=== PATIENT | male | born 1945 | race Caucasian/White ===

== ENCOUNTER 2021-05-12 17:30 | Observation (INO) | payer MEDICARE, OTHER, SELFPAY ==
[2021-05-12] VITALS (10 sets, daily range): BP systolic 132–165; BP diastolic 67–88; PULSE 60–71; RESP 16–31; TEMP 36.2–36.9; O2SAT 97–99; BMI 24.3; BMI 23.6
--- NOTE | 2021-05-12 17:30 | DI.CT.S_ITS ---
PROCEDURE: CT STROKE INDICATIONS: Slurred speech TECHNIQUE: Noncontrast 4.5 mm thick angled axial sections acquired from the foramen magnum to the vertex, with coronal reformats. For radiation dose reduction, the following was used: automated exposure control, adjustment of mA and/or kV according to patient size. COMPARISON: None. FINDINGS: Image quality: Excellent. CSF spaces: Basal cisterns are patent. No extra-axial fluid collections. The ventricles are symmetric in size and shape. Brain: No intracranial bleeds or masses. There is cerebral volume loss for age, with resultant ventricular and sulcal prominence. There are periventricular and deep white matter chronic small vessel ischemic changes. There is intracranial internal carotid artery atherosclerosis. Skull and face: Calvarium and visualized facial bones appear intact, without suspicious lesions. Sinuses: Scattered ethmoid and bilateral maxillary sinus mucosal thickening.Remainder of the paranasal sinuses appear clear. Mastoid air cells are well-aerated. IMPRESSION: 1. CT head without acute intracranial abnormalities or acute calvarial fractures. 2. Age-related senescent changes and sequela of chronic small vessel ischemic disease. Findings were discussed with Dr. Bocanegra at 1800 hrs. This study fulfills neurological imaging criteria for inclusion or exclusion of acute stroke therapies based on available published neurological guidelines. Dictated by: Augustine Mccauley M.D. on 05/12/2021 at 17:59 Approved by: Augustine Mccauley M.D. on 05/12/2021 at 18:02
--- NOTE | 2021-05-12 17:30 | DI.CT.S_ITS ---
PROCEDURE: CT ANGIO HEAD AND NECK INDICATIONS: Slurred speech TECHNIQUE: After the administration of intravenous contrast, 1 mm thick sections acquired from the aortic arch through the [place]. Post-contrast 4.5 mm thick sections then re-acquired from the foramen magnum to the vertex. 3-dimensional xmagoxn-gvvqlmisz-muxjknyavm (MIP) and/or volume rendering reformats were acquired of the central intracranial vasculature and neck separately. COMPARISON: None. FINDINGS: Image quality: Excellent. BRAIN: CSF spaces: Ventricles are normal in size and shape. Basal cisterns are patent. No extra-axial fluid collections. Brain: No midline shift. No intracranial masses. No abnormal enhancement. [place]-white matter interface appears intact. Skull and face: Calvarium and facial bones appear intact, without suspicious lesions. Orbits appear normal. Sinuses: Scattered ethmoid and bilateral maxillary sinus mucosal thickening. HEAD CT ANGIOGRAPHY: Anterior circulation: Moderate atherosclerotic calcifications of the intracranial segments of the bilateral internal carotid arteries. Intracranial internal carotid arteries are patent with moderate stenosis. There is flow/opacification within the paired anterior cerebral arteries. There is opacification within the middle cerebral arteries. The anterior communicating artery is seen. No aneurysms are seen. No occlusion. Posterior circulation: Atherosclerotic calcifications are noted in the vertebral arteries more pronounced on the left. There is associated moderate stenosis on the left. Visualized portions of the vertebral arteries are patent and join to form a normal appearing basilar artery. The distal most segment of the right vertebral artery appears diminutive in size. No definite occlusion seen at this level. There is opacification of the posterior cerebral arteries. No aneurysms are seen. NECK CT ANGIOGRAPHY: Carotid system: The great vessels demonstrate a conventional anatomy as they arise from the aortic arch. Scattered atherosclerotic calcifications of the aortic arch. The origins of the common carotid arteries appear patent. The common carotid arteries appear patent throughout their visualized courses without high grade stenosis. The bifurcation regions are both patent without high grade stenosis. The internal carotid arteries demonstrate normal calibers and courses. Posterior circulation: The origins of the vertebral arteries both appear patent without hemodynamically significant stenosis. The more superior extracranial portions of both vertebral arteries also demonstrate normal courses and calibers. They join to form a normal appearing basilar artery. Soft tissues: Visualized neck soft tissues demonstrate no suspicious abnormalities. no apical pneumothorax. Patchy peripheral left upper lobe density is incompletely imaged and likely represent atelectasis. Pulmonary emphysema. Bones: No suspicious bony lesions. Visualized cervical spine appears normally aligned. No acute compression fractures of the vertebral bodies. IMPRESSION: 1. 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 No evidence for high-grade stenosis or occlusion. No aneurysm seen. 2. 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 There is diminutive size of the right vertebral artery just proximal to joining to form the basilar artery. No definite occlusion seen. This is likely congenital. No significant atherosclerotic vascular disease at this segment. 3. Atherosclerotic vascular disease of the extracranial/cervical arterial vasculature without high-grade stenosis. 4. Scattered ethmoid and bilateral maxillary sinus disease. 5. Bilateral upper lobe pulmonary emphysematous changes with suspected patchy atelectasis of the left upper lobe. Any quantitative measurements of stenosis were performed using NASCET criteria. Dictated by: Augustine Mccauley M.D. on 05/12/2021 at 18:14 Approved by: Augustine Mccauley M.D. on 05/12/2021 at 18:27
[2021-05-12 17:51] LABS: Add Manual Diff / Slide Review NO; Basophils Absolute Auto 0 /uL (0-100); Basophils Percent Auto 0.6 % (0-2); Eosinophils Absolute Auto 0 /uL (0-450); Eosinophils Percent Auto 1.3 % (2-4); Hematocrit 36.4 % (41-53); Hemoglobin 12.7 g/dL (13.5-17.5); Lymphocytes Absolute Auto 1000 /uL (1100-4500); Lymphocytes Percent Auto 24.9 % (25-40); Mean Corpuscular HGB Conc 34.8 % (30-36); Mean Corpuscular Hemoglobin 32.7 PG (26-34); Mean Corpuscular Volume 93.9 fL (80-100); Monocytes Absolute Auto 600 /uL (0-900); Neutrophils Absolute Auto 2300 /uL (1500-7000); Neutrophils Percent Auto 58.2 % (50-75); Platelet Count 188 X10^3/uL (150-400); Red Blood Cell Count 3.88 X10^6/uL (4.5-5.9); Red Cell Distribution Width 13.4 % (11.6-14.8)
--- NOTE | 2021-05-12 17:52 | ED_ITS ---
HPI - Neuro Symptoms/Deficit <Rory Bocanegra MD - Last Filed: 05/19/21 22:35> General Chief Complaint: Neuro Symptoms/Deficit Stated Complaint: Stroke Time Seen by Provider: 05/12/21 17:31 History of Present Illness HPI Narrative: Code stroke activated. Patient onset symptoms at 4:40 p.m. tonight. Patient had slurred speech and generalized weakness. No headache. No facial droop. Patient is symptomatic with EMS arrival but started to improve and then returned again while in the ambulance. However on arrival symptoms resolved. Currently asymptomatic. Blood sugar by EMS 100. Patient denies any medical history. He does state that he stop taking cholesterol medication years ago because he moved and did not regain another provider. Does have family history of strokes. No recent illness. No headache no chest pain. Patient has no active COVID symptoms. He does test positive for COVID but no symptoms. Has been greater than 2 weeks since being COVID positive Related Data Previous Rx's Medication Instructions Recorded aspirin 81 mg tablet,delayed 81 mg PO Q OTHER DAY #1 tab 05/13/21 release atorvastatin 20 mg tablet (Lipitor) 40 mg PO BEDTIME #30 tab 05/13/21 Allergies Allergy/AdvReac Type Severity Reaction Status Date / Time No Known Drug Allergies Allergy Verified 05/12/21 19:51 Review of Systems <Rory Bocanegra MD - Last Filed: 05/19/21 22:35> Review of Systems Narrative: GENERAL: Denies chills, fatigue, malaise, fever, sweats. HEENT: Denies sinus pain, ear pain, sore throat RESPIRATORY: Denies dyspnea, cough CARDIOVASCULAR: Denies chest pain, palpitations GASTROINTESTINAL: Denies nausea, vomiting, abdominal pain : Denies dysuria, frequency, hematuria MUSCULOSKELETAL: denies muscle or bony pain SKIN: Denies rash, skin lesions NEUROLOGIC: Positive for weakness, negative for numbness, positive for slurred speech, negative facial droop ROS Unobtainable: All systems reviewed & are unremarkable except as noted in HPI and below Patient History <Rory Bocanegra MD - Last Filed: 05/19/21 22:35> Social History household members: family Smoking Status: Never smoker alcohol intake: former Exam <Rory Bocanegra MD - Last Filed: 05/19/21 22:35> Narrative Exam Narrative: GENERAL: in no distress, not toxic not dyspneic HEAD: Normocephalic. EYES: Pupils equal round No scleral icterus. ENT: Mucous membranes moist. NECK: Trachea midline. CARDIOVASCULAR: Regular rate and rhythm without murmurs RESPIRATORY: Clear to auscultation. Breath sounds equal bilaterally. No wheezes, rales, or rhonchi. GASTROINTESTINAL: Abdomen soft, non-tender EXTREMITIES: No gross deformities. BACK: No flank tenderness. NEURO: AOx4. Clear speech no facial droop. Light touch intact to bilateral face hands. 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 Strong bilateral patellar reflexes. No pronator drift. SKIN: Warm and dry PSYCH: Not anxious, is cooperative Initial Vital Signs Initial Vital Signs: Vital Signs Pulse Rate 71 05/12/21 17:42 Pulse Oximetry 97 05/12/21 17:42 <Nilsa Boateng MD - Last Filed: 05/13/21 01:49> Initial Vital Signs Initial Vital Signs: Vital Signs Pulse Rate 71 05/12/21 17:42 Pulse Oximetry 97 05/12/21 17:42 Scores <Rory Bocanegra MD - Last Filed: 05/19/21 22:35> NIH Stroke Scale Level of Conciousness: Alert, keenly responsive Ask month/age: Answers both questions correctly. Open/close eyes, close hand: Performs both tasks correctly Best gaze horizontal: Normal Visual hernandez: No visual loss Facial palsy: Normal symetrical movement Left arm drift: No drift for full 10 sec Right arm drift: No drift for full 10 sec Left leg drift: No drift for full 5 sec Right leg drift: No drift for full 5 sec Limb ataxia: Absent Sensory on face/arms/legs: Normal, no sensory loss Best language: No aphasia, normal Dysarthria: Normal Extinction or inattention: No abnormality Total NIH Stroke scale score: 0 <Nilsa Boateng MD - Last Filed: 05/13/21 01:49> NIH Stroke Scale Total NIH Stroke scale score: 0 Course <Rory Bocanegra MD - Last Filed: 05/19/21 22:35> Course Course Narrative: No new issues during course of stay Decision to Admit Date: 05/12/21 Decision to Admit time: 18:23 Orders Ordered: Discontinued Medications Aspirin (Aspirin 81 Mg Chew Tab) 324 mg PO NOW ONE Stop: 05/12/21 18:45 Last Admin: 05/12/21 18:54 Dose: 324 mg Documented by: SANDY Aspirin (Aspirin Ec 81 Mg Tablet) 81 mg PO DAILY [facility] Last Admin: 05/13/21 10:40 Dose: 81 mg Documented by: SOCRATES Atorvastatin Calcium (Atorvastatin 20 Mg Tablet) 40 mg PO BEDTIME [facility] Last Admin: 05/12/21 20:09 Dose: 40 mg Documented by: JASPREET Enoxaparin Sodium (Enoxaparin 40 Mg/0.4 Ml Syringe) 40 mg SUBCUT DAILY [facility] Last Admin: 05/13/21 10:40 Dose: 40 mg Documented by: SOCRATES Sodium Chloride (Normal Saline 0.9%) 1,000 mls @ 1,000 mls/hr IV BOLUS ONE Stop: 05/12/21 19:43 Last Infusion: 05/12/21 20:26 Dose: 0 mls/hr Documented by: Admin: 05/12/21 18:54 Dose: 1,000 mls/hr Documented by: SANDY Ondansetron HCl (Ondansetron 4 Mg/2 Ml Inj) 4 mg IV Q8HR PRN PRN Reason: Nausea And Vomiting Sodium Chloride (Sodium Chloride 0.9% Flush) 10 ml IV PRN PRN PRN Reason: Flush Sodium Chloride (Sodium Chloride 0.9% Flush) 10 ml IV BID [facility] Last Admin: 05/13/21 10:40 Dose: 10 ml Documented by: Admin: 05/12/21 21:38 Dose: 10 ml Documented by: JASPREET Reevaluation(s) Reevaluation #1: Patient understands and agrees for admit. No new symptoms. Time: 18:24 Consultations Consultation #1: Radiologist called noncontrast head CT negative Time: 18:02 Consultation #2: Spoke with hospitalist, dr fajardo, will admit Time: 18:44 Vital Signs Vital signs: Vital Signs - 8 hr 05/12/21 17:50 05/12/21 18:00 05/12/21 18:30 Temperature 98.4 F Pulse Rate 67 67 71 Respiratory Rate 18 31 H 25 H Blood Pressure 149/72 H 149/72 H Pulse Oximetry 97 97 97 05/12/21 18:31 Temperature Pulse Rate 69 Respiratory Rate 25 H Blood Pressure 155/88 H Pulse Oximetry 97 <Nilsa Boateng MD - Last Filed: 05/13/21 01:49> Orders Ordered: Discontinued Medications Aspirin (Aspirin 81 Mg Chew Tab) 324 mg PO NOW ONE Stop: 05/12/21 18:45 Last Admin: 05/12/21 18:54 Dose: 324 mg Documented by: SANDY Aspirin (Aspirin Ec 81 Mg Tablet) 81 mg PO DAILY [facility] Last Admin: 05/13/21 10:40 Dose: 81 mg Documented by: SOCRATES Atorvastatin Calcium (Atorvastatin 20 Mg Tablet) 40 mg PO BEDTIME [facility] Last Admin: 05/12/21 20:09 Dose: 40 mg Documented by: JASPREET Enoxaparin Sodium (Enoxaparin 40 Mg/0.4 Ml Syringe) 40 mg SUBCUT DAILY [facility] Last Admin: 05/13/21 10:40 Dose: 40 mg Documented by: SOCRATES Sodium Chloride (Normal Saline 0.9%) 1,000 mls @ 1,000 mls/hr IV BOLUS ONE Stop: 05/12/21 19:43 Last Infusion: 05/12/21 20:26 Dose: 0 mls/hr Documented by: Admin: 05/12/21 18:54 Dose: 1,000 mls/hr Documented by: SANDY Ondansetron HCl (Ondansetron 4 Mg/2 Ml Inj) 4 mg IV Q8HR PRN PRN Reason: Nausea And Vomiting Sodium Chloride (Sodium Chloride 0.9% Flush) 10 ml IV PRN PRN PRN Reason: Flush Sodium Chloride (Sodium Chloride 0.9% Flush) 10 ml IV BID [facility] Last Admin: 05/13/21 10:40 Dose: 10 ml Documented by: Admin: 05/12/21 21:38 Dose: 10 ml Documented by: JASPREET Vital Signs Vital signs: Vital Signs - 8 hr 05/12/21 17:50 05/12/21 18:00 05/12/21 18:30 Temperature 98.4 F Pulse Rate 67 67 71 Respiratory Rate 18 31 H 25 H Blood Pressure 149/72 H 149/72 H Pulse Oximetry 97 97 97 05/12/21 18:31 Temperature Pulse Rate 69 Respiratory Rate 25 H Blood Pressure 155/88 H Pulse Oximetry 97 MDM - Neuro Symptoms/Deficit <Rory Bocanegra MD - Last Filed: 05/19/21 22:35> Differential Diagnosis Differential diagnosis: Likely subarachnoid hemorrhage, cerebrovascular accident and transient cerebral ischemia Lab Data Result diagrams: 05/13/21 06:00 05/13/21 06:00 Labs: Lab Results 05/12/21 05/12/21 05/12/21 Range/Units 17:39 17:39 17:39 WBC 4.0 L (4.5-11.0) X10^3/uL RBC 3.88 L (4.5-5.9) X10^6/uL Hgb 12.7 L (13.5-17.5) g/dL Hct 36.4 L (41-53) % MCV 93.9 (80-100) fL MCH 32.7 (26-34) PG MCHC 34.8 (30-36) % RDW 13.4 (11.6-14.8) % Plt Count 188 (150-400) X10^3/uL Neut % (Auto) 58.2 (50-75) % Lymph % (Auto) 24.9 L (25-40) % Spink % (Auto) 15.0 H (3-14) % Eos % (Auto) 1.3 L (2-4) % Baso % (Auto) 0.6 (0-2) % Neut # (Auto) 2300 (8865-5513) /uL Lymph # (Auto) 1000 L (5719-5140) /uL Spink # (Auto) 600 (0-900) /uL Eos # (Auto) 0 (0-450) /uL Baso # (Auto) 0 (0-100) /uL PT 12.5 (10.1-12.7) SECONDS INR 1.1 (0.9-1.3) APTT 30 (26.4-36.2) SECONDS Sodium 132 L (137-145) mmol/L Potassium 3.7 (3.4-5.1) mmol/L Chloride 101 (98-107) mmol/L Carbon Dioxide 25 (22-32) mmol/L BUN 16 (9-20) mg/dL Creatinine 0.89 (0.66-1.25) mg/dL Estimated GFR > 60.0 (>60) mL/min BUN/Creatinine Ratio 18.0 (6-22) Glucose 123 H (80-110) mg/dL Calcium 8.1 L (8.4-10.2) mg/dL Total Bilirubin 0.6 (0.2-1.3) mg/dL AST 25 (17-59) IU/L ALT 20 (<50) IU/L Alkaline Phosphatase 66 (38-126) U/L Total Creatine Kinase 34 L (55-170) U/L CK-MB (CK-2) TNP CK-MB (CK-2) Rel Index TNP Troponin I < 0.012 (0.01-0.034) ng/mL Total Protein 6.5 (6.3-8.2) g/dL Albumin 3.6 (3.5-5.0) g/dL Globulin 2.9 (1.7-4.1) g/dL Albumin/Globulin Ratio 1.2 (1.0-2.8) SARS-CoV-2 (PCR) (Negative) 05/12/21 Range/Units 17:44 WBC (4.5-11.0) X10^3/uL RBC (4.5-5.9) X10^6/uL Hgb (13.5-17.5) g/dL Hct (41-53) % MCV (80-100) fL MCH (26-34) PG MCHC (30-36) % RDW (11.6-14.8) % Plt Count (150-400) X10^3/uL Neut % (Auto) (50-75) % Lymph % (Auto) (25-40) % Spink % (Auto) (3-14) % Eos % (Auto) (2-4) % Baso % (Auto) (0-2) % Neut # (Auto) (6214-3992) /uL Lymph # (Auto) (1346-5019) /uL Spink # (Auto) (0-900) /uL Eos # (Auto) (0-450) /uL Baso # (Auto) (0-100) /uL PT (10.1-12.7) SECONDS INR (0.9-1.3) APTT (26.4-36.2) SECONDS Sodium (137-145) mmol/L Potassium (3.4-5.1) mmol/L Chloride (98-107) mmol/L Carbon Dioxide (22-32) mmol/L BUN (9-20) mg/dL Creatinine (0.66-1.25) mg/dL Estimated GFR (>60) mL/min BUN/Creatinine Ratio (6-22) Glucose (80-110) mg/dL Calcium (8.4-10.2) mg/dL Total Bilirubin (0.2-1.3) mg/dL AST (17-59) IU/L ALT (<50) IU/L Alkaline Phosphatase (38-126) U/L Total Creatine Kinase (55-170) U/L CK-MB (CK-2) CK-MB (CK-2) Rel Index Troponin I (0.01-0.034) ng/mL Total Protein (6.3-8.2) g/dL Albumin (3.5-5.0) g/dL Globulin (1.7-4.1) g/dL Albumin/Globulin Ratio (1.0-2.8) SARS-CoV-2 (PCR) Positive H (Negative) Point of Care Testing Glucose POC [address] scan - head: Radiologist's Impression: [place] [address] CT Scan Report Signed Patient: Russ Humphrey MR#: [id number] : 1945 Acct:[id number] Age/Sex: 76 / M Date of Service: 05/12/21 Loc: ED Accession Number: [id number] ?? Procedure: CT Stroke Ordering Provider: Rory Bocanegra MD PROCEDURE:? CT STROKE ? INDICATIONS:? Slurred speech ? TECHNIQUE:? Noncontrast 4.5 mm thick angled axial sections acquired from the foramen magnum to the vertex, with coronal reformats.? For radiation dose reduction, the following was used:? automated exposure control, adjustment of mA and/or kV according to patient size.? ? COMPARISON:? None. ? FINDINGS:? Image quality:? Excellent.? ? CSF spaces:? Basal cisterns are patent.? No extra-axial fluid collections.? The ventricles are symmetric in size and shape.? ? Brain:? No intracranial bleeds or masses.? There is cerebral volume loss for age, with resultant ventricular and sulcal prominence.? There are periventricular and deep white matter chronic small vessel ischemic changes.? There is intracranial internal carotid artery atherosclerosis.? ? Skull and face:? Calvarium and visualized facial bones appear intact, without suspicious lesions.? ? Sinuses:? Scattered ethmoid and bilateral maxillary sinus mucosal thickenin g.Remainder of the paranasal sinuses appear clear. Mastoid air cells are well-aerated. ? ? IMPRESSION:? 1. CT head without acute intracranial abnormalities or acute calvarial fractures. ? 2. Age-related senescent changes and sequela of chronic small vessel ischemic disease. ? Findings were discussed with Dr. Bocanegra at 1800 hrs. ? This study fulfills neurological imaging criteria for inclusion or exclusion of acute stroke therapies based on available published neurological guidelines.? ? ? Dictated by: Augustine Mccauley M.D. on 05/12/2021 at 17:59 ? ? Approved by: Augustine Mccauley M.D. on 05/12/2021 at 18:02 ? CTA - brain/neck: Radiologist's Impression: [address] [address] [address] Scan Report Signed Patient: Russ Humphrey MR#: [id number] : 1945 Acct:[id number] Age/Sex: 76 / M Date of Service: 05/12/21 Loc: ED Accession Number: [id number] ?? Procedure: CT angio head and neck Ordering Provider: Rory Bocanegra MD PROCEDURE:? CT ANGIO HEAD AND NECK ? INDICATIONS:? Slurred speech ? TECHNIQUE:? ? After the administration of intravenous contrast, 1 mm thick sections acquired from the aortic arch through the [place] of [place].? Post-contrast 4.5 mm thick sections then re-acquired from the foramen magnum to the vertex.? 3-dimensional lrrvtak-vcmomvsnh-pmfaxquxyd (MIP) and/or volume rendering reformats were acquired of the central intracranial vasculature and neck separately. ? COMPARISON:? None. ? FINDINGS: ? Image quality:? Excellent.? ? BRAIN:? CSF spaces:? Ventricles are normal in size and shape.? Basal cisterns are patent.? No extra-axial fluid collections.? ? ? Brain:? No midline shift.? No intracranial? masses.? No abnormal enhancement.? [place]-white matter interface appears intact.? ? Skull and face:? Calvarium and facial bones appear intact, without suspicious lesions.? Orbits appear normal.? ? ? Sinuses:? Scattered ethmoid and bilateral maxillary sinus mucosal thickening.? ? HEAD CT ANGIOGRAPHY:? Anterior circulation:? Moderate atherosclerotic calcifications of the intracranial segments of the bilateral internal carotid arteries.? Intracranial internal carotid arteries are patent with moderate stenosis.? There is flow/opacification within the paired anterior cerebral arteries.? There is opacification within the middle cerebral arteries.? The anterior communicating artery is seen.? No aneurysms are seen. No occlusion. ? ? Posterior circulation:? Atherosclerotic calcifications are noted in the vertebral arteries more pronounced on the left.? There is associated moderate stenosis on the left. ?Visualized portions of the vertebral arteries are patent and join to form a normal appearing basilar artery.? The distal most segment of the right vertebral artery appears diminutive in size.? No definite occlusion seen at this level.? There is opacification of the posterior cerebral arteries.? No aneurysms are seen.? ? NECK CT ANGIOGRAPHY:? Carotid system:? The great vessels demonstrate a conventional anatomy as they arise from the aortic arch.? Scattered atherosclerotic calcifications of the aortic arch.? The origins of the common carotid arteries appear patent. The common carotid arteries appear patent throughout their visualized courses without high grade stenosis.? ? The bifurcation regions are both patent without high grade stenosis.? ? The internal carotid arteries demonstrate normal calibers and courses.? ? Posterior circulation:? ? The origins of the vertebral arteries both appear patent without hemodynamically significant stenosis.? The more superior extracranial portions of both vertebral arteries also demonstrate normal courses and calibers.? They join to form a normal appearing basilar artery. ? ? ? Soft tissues:? Visualized neck soft tissues demonstrate no suspicious abnormalities.? no apical pneumothorax.? Patchy peripheral left upper lobe density is incompletely imaged and likely represent atelectasis.? Pulmonary emphysema.? ? Bones:? No suspicious bony lesions.? Visualized cervical spine appears normally aligned.? No acute compression fractures of the vertebral bodies.? ? ? IMPRESSION:? ? 1. 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 No evidence for high-grade stenosis or occlusion.? No aneurysm seen. ? 2. 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 There is diminutive size of the right vertebral artery just proximal to joining to form the basilar artery.? No definite occlusion seen.? This is likely congenital.? No significant atherosclerotic vascular disease at this segment.? ? 3. Atherosclerotic vascular disease of the extracranial/cervical arterial vasculature without high-grade stenosis. ? 4. Scattered ethmoid and bilateral maxillary sinus disease. ? 5. Bilateral upper lobe pulmonary emphysematous changes with suspected patchy atelectasis of the left upper lobe.? ? Any quantitative measurements of stenosis were performed using NASCET criteria.? ? ? Dictated by: Augustine Mccauley M.D. on 05/12/2021 at 18:14 ? ? Approved by: Augustine Mccauley M.D. on 05/12/2021 at 18:27 ? ECG Data Interpretation: Normal sinus rhythm rate [address] elevation or depression MDM Narrative Medical decision making narrative: No tPA at this time. Symptoms have resolved. No consult with Neurology indicated this time. Patient is asymptomatic. TIA. Symptoms resolved. Appropriate for admission for balance of workup for TIA/stroke. No endovascular intervention at this time. No high-grade stenosis of large vessels. <Nilsa Boateng MD - Last Filed: 05/13/21 01:49> Lab Data Labs: Lab Results 05/12/21 05/12/21 05/12/21 Range/Units 17:39 17:39 17:39 WBC 4.0 L (4.5-11.0) X10^3/uL RBC 3.88 L (4.5-5.9) X10^6/uL Hgb 12.7 L (13.5-17.5) g/dL Hct 36.4 L (41-53) % MCV 93.9 (80-100) fL MCH 32.7 (26-34) PG MCHC 34.8 (30-36) % RDW 13.4 (11.6-14.8) % Plt Count 188 (150-400) X10^3/uL Neut % (Auto) 58.2 (50-75) % Lymph % (Auto) 24.9 L (25-40) % Spink % (Auto) 15.0 H (3-14) % Eos % (Auto) 1.3 L (2-4) % Baso % (Auto) 0.6 (0-2) % Neut # (Auto) 2300 (2929-6855) /uL Lymph # (Auto) 1000 L (2583-6480) /uL Spink # (Auto) 600 (0-900) /uL Eos # (Auto) 0 (0-450) /uL Baso # (Auto) 0 (0-100) /uL PT 12.5 (10.1-12.7) SECONDS INR 1.1 (0.9-1.3) APTT 30 (26.4-36.2) SECONDS Sodium 132 L (137-145) mmol/L Potassium 3.7 (3.4-5.1) mmol/L Chloride 101 (98-107) mmol/L Carbon Dioxide 25 (22-32) mmol/L BUN 16 (9-20) mg/dL Creatinine 0.89 (0.66-1.25) mg/dL Estimated GFR > 60.0 (>60) mL/min BUN/Creatinine Ratio 18.0 (6-22) Glucose 123 H (80-110) mg/dL Calcium 8.1 L (8.4-10.2) mg/dL Total Bilirubin 0.6 (0.2-1.3) mg/dL AST 25 (17-59) IU/L ALT 20 (<50) IU/L Alkaline Phosphatase 66 (38-126) U/L Total Creatine Kinase 34 L (55-170) U/L CK-MB (CK-2) TNP CK-MB (CK-2) Rel Index TNP Troponin I < 0.012 (0.01-0.034) ng/mL Total Protein 6.5 (6.3-8.2) g/dL Albumin 3.6 (3.5-5.0) g/dL Globulin 2.9 (1.7-4.1) g/dL Albumin/Globulin Ratio 1.2 (1.0-2.8) SARS-CoV-2 (PCR) (Negative) 05/12/21 Range/Units 17:44 WBC (4.5-11.0) X10^3/uL RBC (4.5-5.9) X10^6/uL Hgb (13.5-17.5) g/dL Hct (41-53) % MCV (80-100) fL MCH (26-34) PG MCHC (30-36) % RDW (11.6-14.8) % Plt Count (150-400) X10^3/uL Neut % (Auto) (50-75) % Lymph % (Auto) (25-40) % Spink % (Auto) (3-14) % Eos % (Auto) (2-4) % Baso % (Auto) (0-2) % Neut # (Auto) (6997-3776) /uL Lymph # (Auto) (7372-7071) /uL Spink # (Auto) (0-900) /uL Eos # (Auto) (0-450) /uL Baso # (Auto) (0-100) /uL PT (10.1-12.7) SECONDS INR (0.9-1.3) APTT (26.4-36.2) SECONDS Sodium (137-145) mmol/L Potassium (3.4-5.1) mmol/L Chloride (98-107) mmol/L Carbon Dioxide (22-32) mmol/L BUN (9-20) mg/dL Creatinine (0.66-1.25) mg/dL Estimated GFR (>60) mL/min BUN/Creatinine Ratio (6-22) Glucose (80-110) mg/dL Calcium (8.4-10.2) mg/dL Total Bilirubin (0.2-1.3) mg/dL AST (17-59) IU/L ALT (<50) IU/L Alkaline Phosphatase (38-126) U/L Total Creatine Kinase (55-170) U/L CK-MB (CK-2) CK-MB (CK-2) Rel Index Troponin I (0.01-0.034) ng/mL Total Protein (6.3-8.2) g/dL Albumin (3.5-5.0) g/dL Globulin (1.7-4.1) g/dL Albumin/Globulin Ratio (1.0-2.8) SARS-CoV-2 (PCR) Positive H (Negative) Point of Care Testing Glucose POC 113 Discharge Plan Departure Patient Disposition: Admitted as Observation Clinical Impression: Brain TIA Admit Date/Time: 05/12/21 18:45 Admit Provider: Usama Fajardo
[2021-05-12 17:59] LABS: INR 1.1 (0.9-1.3); Prothrombin Time 12.5 SECONDS (10.1-12.7)
[2021-05-12 18:02] LABS: PTT Partial Thromboplastin Tim 30 SECONDS (26.4-36.2)
[2021-05-12 18:06] LABS: Alanine Aminotransferase 20 IU/L (<50); Albumin 3.6 g/dL (3.5-5.0); Albumin Globulin Ratio 1.2 (1.0-2.8); Alkaline Phosphatase 66 U/L (38-126); Aspartate Aminotransferase 25 IU/L (17-59); Bilirubin Total 0.6 mg/dL (0.2-1.3); Blood Urea Nitrogen 16 mg/dL (9-20); Calcium 8.1 mg/dL (8.4-10.2); Carbon Dioxide 25 mmol/L (22-32); Chloride 101 mmol/L (98-107); Creatine Kinase 34 U/L (55-170); Estimated Glomerular Filt Rate > 60.0 mL/min (>60); Globulin 2.9 g/dL (1.7-4.1); Glucose 123 mg/dL (80-110); HEMOLYSIS < 15 (0-50); Potassium 3.7 mmol/L (3.4-5.1); Sodium 132 mmol/L (137-145); Total Protein 6.5 g/dL (6.3-8.2)
[2021-05-12 18:17] LABS: Troponin I < 0.012 ng/mL (0.01-0.034)
[2021-05-12 18:33] LABS: COVID19 -Nasal RAPID POSITIVE (Negative)
[2021-05-12] MEDS: ASPIRIN 81 MG CHEW TAB 324 MG PO (18:54)
[2021-05-12] MEDS: SODIUM CHLORIDE 0.9% 1,000 ML 1000 ML IV (18:54)
[2021-05-12] MEDS: ATORVASTATIN 20 MG TABLET 40 MG PO (20:09)
--- NOTE | 2021-05-12 20:16 | PC.NURSE ---
Pt. admitted to room 206, A&O x4. Oriented to his room, showed his TV & bed controls. Instructed to call for asistance to the BR. Denies any recent fall, no C/O dizziness & no C/O any pain. Will cont. POC & monitor.
--- NOTE | 2021-05-12 21:27 | P.HP_ITS ---
History of Present Illness History of Present Illness Date Patient Seen: 05/12/21 Time Patient Seen: 21:00 Chief complaint: Stroke Narrative: Mr. Humphrey is a 76M with PMH of HL on no medications who presents with dizziness, facial numbness, and slurred speech. Patient has recently been ill with COVID, but has been feeling improved and no longer symptomatic. He fr equently does yard work, and today was doing yard work, less strenuous than his normal. He was eating and drinking normally. He had sudden dizziness and lightheadedness. This then developed into kathleen-oral numbness and then slurred speech. He had no facial droop and no lateralizing weakness. His blood sugar was normal when checked by EMS, as was his blood pressure. His symptoms resolved on transport to the hospital In the ED workup was done, vitals were notable for elevated blood pressure. NIH was 0. Labs notable for WBC 4.0, hgb 12.7, na 132, creatinine 0.89. Trop negative. CT head showed no acute process. CTA showed vascular disease in bilateral intracranial carotids and also bilaterally in the vertebral arteries, but no significant high grade stenosis or thrombus was seen. He was ordered for aspirin and admitted for further treatment. Past medical history: Hyperlipidemia Medications: none Social history: no smoking, no alcohol use Family history: Mother and Father with CVA Patient History Family & Social History Social History: household members children Prior Living Arrangements RV Safety & Behavioral: Feels Safe in Current Yes Environment Been Physically Hurt or No Threatened By a Person Suicidal Ideation Description None Suicide Plan Description No Plan Tobacco & Substance use: Smoking Status Never smoker alcohol intake former Substance Use Type does not use Meds Home Medications and Allergies Home Medications Medication Instructions Recorded Confirmed Type No Known Home Medications 05/12/21 05/12/21 History Allergies Allergy/AdvReac Type Severity Reaction Status Date / Time No Known Drug Allergies Allergy Verified 05/12/21 19:51 Review of Systems Review of Systems Narrative: 14 systems reviewed and negative aside from what is noted in HPI Exam Vital Signs (past 8 hours): - 05/12/21 23:21 05/12/21 23:30 05/13/21 04:50 Temperature 97.7 F 98.0 F Pulse Rate 63 59 L Pulse Rate [Orthostatic Lying] 60 Pulse Rate [Orthostatic Sitting] 65 Pulse Rate [Orthostatic Standing] 65 Respiratory Rate 16 14 Blood Pressure 146/73 H 131/63 Blood Pressure [Orthostatic Lying] 132/72 Blood Pressure [Orthostatic Sitting] 144/74 H Blood Pressure [Orthostatic Standing] 149/67 H Pulse Oximetry 97 98 Oxygen Delivery Method Room Air Oxygen Flow Rate 0 Narrative Exam Narrative: GEN: no acute distress HEENT: moist mucous membranes, PERRL NECK: trachea mildine, no JVD CV: regular rate and rhythm, with no murmurs PULM: clear bilaterally, no wheezes, rhonchi, rales ABD: soft, nontender, nondistended, no organomegaly, normal bowel sounds EXT: warm and well perfused, no edema NEURO: awake, alert, oriented, no focal deficits, no sensory deficits, 5/5 strength upper and lower extremities Objective Labs Result Diagrams: 05/12/21 17:39 05/12/21 17:39 Labs: Laboratory Results - last 24 hr 05/12/21 05/12/21 05/12/21 17:39 17:39 17:39 WBC 4.0 L RBC 3.88 L Hgb 12.7 L Hct 36.4 L MCV 93.9 MCH 32.7 MCHC 34.8 RDW 13.4 Plt Count 188 Neut % (Auto) 58.2 Lymph % (Auto) 24.9 L [place] % (Auto) 15.0 H Eos % (Auto) 1.3 L Baso % (Auto) 0.6 Neut # (Auto) 2300 Lymph # (Auto) 1000 L [place] # (Auto) 600 Eos # (Auto) 0 Baso # (Auto) 0 PT 12.5 INR 1.1 APTT 30 Sodium 132 L Potassium 3.7 Chloride 101 Carbon Dioxide 25 BUN 16 Creatinine 0.89 Estimated GFR > 60.0 BUN/Creatinine Ratio 18.0 Glucose 123 H Calcium 8.1 L Total Bilirubin 0.6 AST 25 ALT 20 Alkaline Phosphatase 66 Total Creatine Kinase 34 L CK-MB (CK-2) TNP CK-MB (CK-2) Rel Index TNP Troponin I < 0.012 Total Protein 6.5 Albumin 3.6 Globulin 2.9 Albumin/Globulin Ratio 1.2 SARS-CoV-2 (PCR) 05/12/21 17:44 WBC RBC Hgb Hct MCV MCH MCHC RDW Plt Count Neut % (Auto) Lymph % (Auto) Lim[place] % (Auto) Eos % (Auto) Baso % (Auto) Neut # (Auto) Lymph # (Auto) [place] # (Auto) Eos # (Auto) Baso # (Auto) PT INR APTT Sodium Potassium Chloride Carbon Dioxide BUN Creatinine Estimated GFR BUN/Creatinine Ratio Glucose Calcium Total Bilirubin AST ALT Alkaline Phosphatase Total Creatine Kinase CK-MB (CK-2) CK-MB (CK-2) Rel Index Troponin I Total Protein Albumin Globulin Albumin/Globulin Ratio SARS-CoV-2 (PCR) Positive H Assessment & Plan Assessment & Plan narrative: Mr. Humphrey is a 76M with PMH hyperlipidemia who presents with dizziness and facial numbness and slurred speech. 1. Acute neurologic changes -etiology is possibly CVA/TIA vs vasovagal vs less likely arrhythmia -CT showed no acute process -CTA head/neck shows no large vessel occlusion, thrombus, but does not moderate atherosclerotic diseas and intracranial carotid and vertebral arteries -ordered for aspirin and statin -NIH qshift -PT/OT and speech therapy ordered -MRI brain, ECHO ordered -a1c and lipids ordered for risk stratification -monitor blood pressure CODE: Full Proxy: Sapna Humphrey, daughter I have utilized all available resources to reconcile patient's home medications Time Spent With Patient Critical Care time: I spent a total of [] minutes of critical care time on this patient's care today; this time is exclusive of procedural time. Quality VTE Deep Vein Thrombosis/Pulmonary Embolism Present on Admission: No MIPS - Admit I confirm the patient?s Advance Care Plan is present, Code status is documented, Surrogate decision maker is in patient?s record [If Yes, STOP here]: Yes
--- NOTE | 2021-05-12 21:28 | DI.ECHO.S_ITS ---
[facility] +---------+ [facility] +---------+ : : [address] : : : : [id number] : : : : Phone: [phone]+ Echocardiogram Report + + :Name: CRISTINO ZAPATA Study Date: 05/13/2021 Height: 67 in : :[facility] ReadingLocation: Weight: 151 lb: : Gender: Male BSA: 1.8 m2 : :: 1945 Age: 76 yrs : :Reason For Study: TIA : :Ordering Physician: RIKKI : :AUDRA Performed By: Nellie Farmer : :Referring: AUDRA BRANDT : + + Interpretation Summary The left ventricle appears normal in size, wall thickness, and systolic function without any focal wall motion abnormalities. The ejection fraction is estimated to be 55-60%. The right ventricular systolic function is normal. The left atrium is moderately dilated. There is mild aortic regurgitation. Procedure: A two-dimensional transthoracic echocardiogram with color flow and Doppler was performed. The study quality was technically adequate. There is no prior echocardiogram noted for this patient. The patient was in normal sinus rhythm during the exam. Left Ventricle: The left ventricle appears normal in size, wall thickness, and systolic function without any focal wall motion abnormalities. The ejection fraction is estimated to be 55-60%. There are no obvious focal wall motion abnormalities noted but poor endocardial definition reduces the sensitivity for the detection of such. Distolic function cannot be assessed 'Due to lack of TR jet.'. Right Ventricle: The right ventricle is mildly dilated. The right ventricular systolic function is normal. Atria: The left atrium is moderately dilated. The right atrium is borderline dilated. There is no Doppler evidence for an interatrial shunt. Mitral Valve: The mitral valve is normal in structure and function. There is trace mitral regurgitation. Aortic Valve: The aortic valve is trileaflet. The aortic valve opens well. There is mild aortic valve sclerosis. There is mild aortic regurgitation. Tricuspid Valve: The tricuspid valve is normal in structure and function. There is a trace or physiologic amount of tricuspid regurgitation. Pulmonary artery pressures cannot be estimated because of the lack of a measurable TR jet velocity but the IVC suggests a CVP of around 3 mmHg. Pulmonic Valve: The pulmonic valve leaflets are thin and pliable; valve motion is normal. There is a trace or physiologic amount of pulmonic regurgitation. There is mild pulmonic regurgitation. Great Vessels: The aortic root is normal size. The ascending aorta is mildly enlarged. The aortic arch is mildly enlarged. The pulmonary artery is normal size. The IVC is of normal diameter and collapses greater than 50% with a sniff. This suggests a low right atrial pressure of 3 mm Hg. Pericardium/ Pleura There is no pericardial effusion. MMode/2D Measurements & Calculations LVIDd: 4.8 cm LVOT diam: 2.0 cm LVIDs: 3.2 cm Ao root diam: 3.4 cm FS: 32.7 % asc Aorta Diam: 3.8 cm IVSd: 0.95 cm Ao Arch Diam (Prox Trans): 3.7 cm LVPWd: 0.83 cm Ao Arch Diam (distal): 3.5 cm LV velazquez. diameter/BSA (cm/m^2): 2.7 LV sys. diameter/BSA (cm/m^2): 1.8 LA A2 area: 20.8 cm2 RA long axis: 5.8 cm LA A4 area: 27.3 cm2 RA area: 19.9 cm2 LA length (vol): 6.6 cm RA vol: 58.2 ml LA vol: 72.9 ml RA : 32.4 ml/m2 LA vol index: 40.7 ml/m2 IVC diam: 1.3 cm RVD1 (basal): 4.4 cm RVD2 (mid): 2.9 cm TAPSE: 2.6 cm Doppler Measurements & Calculations Ao V2 max: 141.4 cm/sec LVOT Max Mariusz: 97.9 cm/sec Ao V2 mean: 98.5 cm/sec LV V1 max P.8 mmHg Ao max P.0 mmHg LV V1 VTI: 20.3 cm Ao mean P.3 mmHg ALEXX(I,D): 2.1 cm2 Ao V2 VTI: 31.7 cm ALEXX(V,D): 2.2 cm2 sev ratio: 0.64 ALEXX indexed to BSA (cm^2/m^2): 1.2 MV E max mariusz: 65.6 cm/sec PA V2 max: 73.9 cm/sec MV A max mariusz: 60.9 cm/sec PA V2 mean: 55.0 cm/sec MV E/A: 1.1 PA mean P.3 mmHg Med Peak E' Mariusz: 8.0 cm/sec PA Accel Time: 0.11 sec E/E' med: 8.2 Lat Peak E' Mariusz: 8.8 cm/sec E/E' lat: 7.4 E/e' average: 7.8 MV dec time: 0.26 sec SV(LVOT): 65.8 ml AV P1/2t-pr_phl: 546.8 msec Reading Physician:KEYON
--- NOTE | 2021-05-12 21:28 | DI.MRI.S_ITS ---
PROCEDURE: MR HEAD/BRAIN WO CON INDICATIONS: tia TECHNIQUE: Non-contrast axial T1 spin echo, axial T2 fast spin echo, sagittal and axial FLAIR, coronal T2 fast spin echo, axial gradient echo, axial diffusion and ADC through the brain. COMPARISON: None. FINDINGS: Image quality: Excellent. CSF spaces: Ventricles appear symmetric in size and shape. Basal cisterns are patent. No extra-axial fluid collections. Brain: No intracranial bleeds or mass effects. There is cerebral volume loss for age. There are periventricular and deep white matter chronic small vessel ischemic changes. Brainstem appears normal. Diffusion-weighted images show no acute ischemic insults. No chronic ischemic insults. Normal intravascular flow voids are present. Skull and face: Calvarial bone marrow is normal in signal. Orbits are normal. Sinuses: Mild paranasal sinus scattered mucosal thickening. IMPRESSION: Mild global cerebral volume loss and chronic microvascular ischemic change. No significant intracranial finding otherwise. Dictated by: Jose Johns M.D. on 05/13/2021 at 10:20 Approved by: Jose Johns M.D. on 05/13/2021 at 10:23
[2021-05-12] MEDS: SODIUM CHLORIDE 0.9% FLUSH 10 ML IV (21:38)
[2021-05-13 04:50] VITALS: BP 131/63; PULSE 59; RESP 14; TEMP 36.7; O2SAT 98
[2021-05-13 06:10] LABS: Add Manual Diff / Slide Review NO; Basophils Absolute Auto 0 /uL (0-100); Basophils Percent Auto 0.3 % (0-2); Eosinophils Absolute Auto 0 /uL (0-450); Eosinophils Percent Auto 1.3 % (2-4); Hematocrit 39.2 % (41-53); Hemoglobin 13.3 g/dL (13.5-17.5); Lymphocytes Absolute Auto 900 /uL (1100-4500); Lymphocytes Percent Auto 24.4 % (25-40); Mean Corpuscular HGB Conc 33.9 % (30-36); Mean Corpuscular Hemoglobin 31.7 PG (26-34); Mean Corpuscular Volume 93.6 fL (80-100); Monocytes Absolute Auto 500 /uL (0-900); Monocytes Percent Auto 14.1 % (3-14); Neutrophils Absolute Auto 2200 /uL (1500-7000); Neutrophils Percent Auto 59.9 % (50-75); Platelet Count 189 X10^3/uL (150-400); Red Blood Cell Count 4.19 X10^6/uL (4.5-5.9); Red Cell Distribution Width 13.4 % (11.6-14.8); White Blood Cell Count 3.6 X10^3/uL (4.5-11.0)
[2021-05-13 06:23] LABS: BUN Creatinine Ratio 15.8 (6-22); Blood Urea Nitrogen 12 mg/dL (9-20); Calcium 8.4 mg/dL (8.4-10.2); Carbon Dioxide 27 mmol/L (22-32); Chloride 109 mmol/L (98-107); Cholesterol 143 mg/dL (140-199); Estimated Glomerular Filt Rate > 60.0 mL/min (>60); Glucose 105 mg/dL (80-110); HDL Cholesterol 23 mg/dL (40-60); HEMOLYSIS < 15 (0-50); LDL Cholesterol Calculated 99 mg/dL (<100); Magnesium 2.4 mg/dL (1.6-2.3); Potassium 3.7 mmol/L (3.4-5.1); Sodium 141 mmol/L (137-145); Triglycerides 103 mg/dL (35-150)
[2021-05-13 06:30] LABS: Hemoglobin A1C% w Est Avg Glu 5.7 % (4.0-6.0)
[2021-05-13 08:00] VITALS: BP 149/73; PULSE 67; RESP 16; O2SAT 98
--- NOTE | 2021-05-13 08:45 | SLP.IPNOTE ---
Attempted to see pt for speech evaluation at 8:40, pt was getting an MRI. Will attempt later today.
--- NOTE | 2021-05-13 10:18 | SLP.IPNOTE ---
Attempted to see pt for speech evaluation at 10:00, pt was getting an echocardiogram. Will attempt later today.
[2021-05-13] MEDS: ASPIRIN EC 81 MG TABLET PO (10:40)
[2021-05-13] MEDS: ENOXAPARIN 40 MG/0.4 ML SYRINGE SUBCUT (10:40)
[2021-05-13] MEDS: SODIUM CHLORIDE 0.9% FLUSH 10 ML IV (10:40)
--- NOTE | 2021-05-13 11:00 | PC.NURSE ---
Assess- Patient denies speech problems, he is able to lift both of his arms and legs up, and is independent in his room. Denies any numbness or tingling as well. BS cta, 90s on RA. Had MRI and echo. He is resting comfortably.
[2021-05-13 11:21] VITALS: O2SAT 98
--- NOTE | 2021-05-13 12:26 | CM.DANOTE ---
Patient is a 76 yo male who was admitted on 05/12/21 for Stroke. Pt has [facility] and [employer] for insurance and his PCP is not listed. EMR was reviewed. Per MD, pt with recent COVID19+ test results and admitted now for CVA vs TIA r/o. Echo and MRI ordered. PT/OT/ST ordered and pending. Per RN, Echo and MRI now completed and PT/OT/ST still need to work with pt now that imaging is done. SW attempted to call into pt's room via room phone but no answer. SW called pt's Dtr Sapna and explained role and she confirms pt lives in an RV on her property right next to her house and is very independent, he is still chopping wood, mowing, doing yard work, etc... Dtr cannot remember if she is pt's DPOA or her . She denies that pt has any hc of HH or SNF but states 4 years ago he had a massive heart attack and therefore she feels somewhat cautious about pt discharging too soon but aware MD may determine he's medically stable for discharge. Dtr states they are trying to find a good system like an intercom or walkie talkie type device to have between the RV and their house as pt stated that when he felt so sick and weak yesterday prior to admissions he would not have been able to use his cell phone so he called for help out loud to his Dtr. Dtr confirms they can assist him as needed at d/c and she would likely be the one providing transport although her Dtr, pt's granddtr, also live there and can help as well. Plan: SW to follow closely for PT/OT/ST eval and MRI/Echo results towards determining any d/c planning needs and confirm safe d/c home with family assist when stable. CHERYL Walker Discharge Planning/Care Management Advanced directive, confirm from FAMILY Start: 05/12/21 19:43 Freq: Q24H Status: Active Protocol: Document 05/12/21 19:30 MP (Rec: 05/12/21 20:15 MP [id number]) Advance Directive, confirm on record Time 20:15 Person contacted PT. Copy received No Copy received No Advanced directive available on record No Document 05/12/21 19:43 MP (Rec: 05/12/21 20:23 MP [id number]) Advance Directive, confirm on record Time 20:15 Person contacted PT. Copy received No Copy received No Advanced directive available on record No CM Discharge Assessment Start: 05/13/21 12:24 Freq: Status: Active Protocol: Document 05/13/21 12:24 BF (Rec: 05/13/21 12:26 BF [id number]) Discharge Planning Assessment Assigned Engineering Project Manager CHERYL Herman DPOA/Assigned Designee Name Sapna Humphrey Dtr Contact Information [phone] Advance Directives? No Advance Directives on File No History Provided By Patient,Family Member,Medical Record Has Patient been admitted in last 30 No days? Prior Living Arrangements RV Household Members children Type of transporation used prior to Drives own vehicle admit Independent with ADL's Yes Is patient alert and oriented? Yes Caregiver for Another No Comment Pending PT/OT eval and recommendations Barriers to Discharge No Comment COVID+ Discharge Plan Home Transportation Arrangement Likely family to transport Referrals Initiated None needed Additional Comment Pending PT/OT eval Review Status In Process Please Provide Date Initial DC 05/13/21 Assessment Was Performed Next Review Type Continued Stay Review
--- NOTE | 2021-05-13 13:00 | OT.IP.EVAL ---
Occupational Therapy Inpatient Evaluation/Re-Eval M1 PT/OT-IP Prior Functional Status Start: 05/13/21 14:10 Freq: NEEDED Status: Active Protocol: Document 05/13/21 13:00 [facility] (Rec: 05/13/21 14:24 [facility] [id number]) Medical Review Prior Functional Status Medical History Reviewed Yes Diet/Fluid Consistency Regular Communication Independent Mobility and Gait Independent with no device used. Activities of Daily Living and IADL's COmpletely independent with all ADl,IADL and drives. Prior Functional Level (Other details) Pt states lives with his daughter in law and grand daughter and that someone is always home if he were to needs assist. Pt sleeps out in the trailer next to the house. Social History Household Members children Living Arrangements RV Number of Stairs To Enter/Railing? 2 steps with left rail to get into the trailer. 3 steps with right rail to get into the house. Pt showers inside the house. Home Environment Tub/Shower Home Equipment Straight Cane Additional Social History Comment Pt's has a SPC that his used. M2 OT-IP Current Condition Start: 05/13/21 14:10 Freq: Status: Active Protocol: Document 05/13/21 13:00 [facility] (Rec: 05/13/21 14:24 [facility] [id number]) Occupational Therapy Current Condition Current Condition Evaluation Date 05/13/21 Treatment Diagnosis neurological changes Diagnosis Onset Date 05/12/21 M3 OT- IP Subjective and Pain Start: 05/13/21 14:10 Freq: Status: Active Protocol: Document 05/13/21 13:00 [facility] (Rec: 05/13/21 14:24 [facility] [id number]) OT- Subjective Occupational Therapy Visit Type Type Initial Evaluation Visit Start Time 12:45 Visit Stop Time 13:00 Total Visit Minutes 15 Occupational Therapy Visit Comments Patient Comments Pt agreed to do OT eval. Pt feels that he is back to baseline. Pt states has been independent in the room while here in the hospital. Patient/Caregiver Goals TO go home. OT Pain Assessment Pain When Pain Assessed At Rest Pain Present Pain Present Denied Pain M4 OT- IP ADL's Start: 05/13/21 14:10 Freq: Status: Active Protocol: Document 05/13/21 13:00 [facility] (Rec: 05/13/21 14:24 [facility] [id number]) OT [id number] General Evaluation Self-Feeding Ability Independent OT ADL-Grooming General Evaluation Grooming Ability Independent OT ADL-Oral Care Comments Oral Care Comments Not performed. OT ADL-Dressing General Eval Lower Body Dressing Ability Independent Areas Needing Assistance Socks OT ADL-Toileting Comments OT Toileting Comments Per pt has been independently using the toilet on his own. OT ADL-Bathing Comments OT Bathing Comments Not performed. M5 OT- IP IADL's Start: 05/13/21 14:10 Freq: Status: Active Protocol: Document 05/13/21 13:00 [facility] (Rec: 05/13/21 14:24 [facility] [id number]) OT-Instrumental Activities of Daily Living Home Safety Awareness Awareness of Need for Assistance at Home Good Awareness Ability to Problem Solve Emergency Able to Problem Solve Situations Home Safety Comments Pt has daughter in law and grand daughter that will be able to assist him for any needs if needed. M6 OT- IP Functional Cognition Start: 05/13/21 14:10 Freq: Status: Active Protocol: Document 05/13/21 13:00 [facility] (Rec: 05/13/21 14:24 [facility] [id number]) Cognitive Factors Limiting Selfcare Function Cognitive Ability Level of Alertness Alert Patient Orientation Name,Age,Birthday,Month,Date, Year,Day of Week,Place, Situation Attention Span Ability Capable of Focused Attention, Capable of Sustained Attention Ability to Follow Commands Able to Follow Multi-Step Commands Memory Description No Deficits Noted Safety Awareness No Deficits Noted Problem Solving Ability No deficits Noted Cognitive Comments Cognitive Assessment Comments Pt scored 90 seconds on [place] Making Part B which implies is 70% for his age group and implies mild impairment for visual attention, task switching, speed of processing , executive functioning, and mental flexibility. However pt did not have his reading glasses here but stated could see the numbers well enough. OT- Vision and Hearing OT- Hearing Assessment OT- Hearing Assessment WFL OT- Vision Assessment Visual Acuity Glasses For Reading Vision Assessment Comments Reading glasses not present in the hospital. M7 OT- IP Mobility and Balance Start: 05/13/21 14:10 Freq: Status: Active Protocol: Document 05/13/21 13:00 [facility] (Rec: 05/13/21 14:24 [facility] [id number]) OT- Bed Mobility Assessment Rolling Level of Assistance Independent Scooting Scooting to Edge of Bed Independent Scooting Up and Down in Bed Independent OT-Transfer Assessment Sit to and From Stand Sit to and from Stand Independent Transfers Transfer Ability Independent Technique Transfer Destination Bed Devices Transfer Assistive Devices Gait Belt Comments Mobility Comments Pt able to independently walk in the room without a device. OT- Balance Assessment Sitting Balance and Reactions Static Sitting Balance Ability Normal Dynamic Sitting Balance Ability Normal Standing Balance and Reactions Static Standing Balance Ability Normal Dynamic Standing Balance Ability Good Comments Other Balance Tests/Deviations/Treatment Pt able to carry his food tray : to the sink with good balance . M8 OT- IP Objective Assessments Start: 05/13/21 14:10 Freq: Status: Active Protocol: Document 05/13/21 13:00 [facility] (Rec: 05/13/21 14:24 [facility] [id number]) OT Gross Range of Motion Upper Extremity Range of Motion ROM Impairments Grossly WFL OT Strength Comments Strength Comments BUE 4/5 throughout, except Left shoulder 4-/5 OT- Coordination Assessment Upper Extremity Finger Tapping Test Within Functional Limits OT-Muscle Tone Assessment Muscle Tone WNL Yes M9 OT- IP Assessment and Plan Start: 05/13/21 14:10 Freq: Status: Active Protocol: Document 05/13/21 13:00 [facility] (Rec: 05/13/21 14:24 [facility] [id number]) OT Summary Assessment and Plan Potential Rehabilitation Potential Excellent Analytic Complexity at Evaluation Low Summary Progress Towards Goals Safe For Discharge Assessment Summary Pt able to do his ADL needs and appears to be at his baseline for needs. Pt states has a supportive family to assist with his needs if needed at home and states will not drive initially while at home. Treatment Plan OT Treatment Plan Discharge Planning Discharge Recommendations OT Discharge Recommendations Home with Assistance Transportation Needs at Discharge Private Vehicle
--- NOTE | 2021-05-13 14:25 | P.DS_ITS ---
History of Present Illness History of Present Illness Chief complaint: Stroke Narrative: 76M with PMH of HL on no medications who presents with dizziness, facial numbness, and slurred speech. Patient has recently been ill with COVID, but has been feeling improved and no longer symptomatic. He frequently does yard work, and today was doing yard work, less strenuous than his normal. He was eating and drinking normally. He had sudden dizziness and lightheadedness. This then developed into kathleen-oral numbness and then slurred speech. He had no facial droop and no lateralizing weakness. His blood sugar was normal when checked by EMS, as was his blood pressure. His symptoms resolved on transport to the hospital In the ED workup was done, vitals were notable for elevated blood pressure. NIH was 0. Labs notable for WBC 4.0, hgb 12.7, na 132, creatinine 0.89. Trop negative. CT head showed no acute process. CTA showed vascular disease in bilateral intracranial carotids and also bilaterally in the vertebral arteries, but no significant high grade stenosis or thrombus was seen. He was ordered for aspirin and admitted for further treatment. Discharge Providers Provider Date of admission: 05/12/21 18:45 Discharge Date: 05/13/21 Primary care physician: Doctor Negra MD Consults: 05/12/21 19:32 Consult to Occupational Therapy Evaluate & Treat Comment: Physician Instructions: Evaluate and treat Consult to Physical Therapy Evaluate & Treat Comment: Physician Instructions: Evaluate and Treat Consult to Speech Therapy Evaluate & Treat Comment: Physician Instructions: Evaluate and treat Discharge provider: Santo Long MD Summary Hospital Course Discharge Diagnosis: 1. Acute TIA 2. Cerebral atherosclerosis 3. Dyslipidemia 4. Elevated blood pressures 5. Pancytopenia likely secondary to recent COVID 6. History of recurrent epistaxis Brain MR:Mild global cerebral volume loss and chronic microvascular ischemic change.? No significant intracranial finding otherwise.? Head/neck CTA:1. 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 No evidence for high-grade stenosis or occlusion.? No aneurysm seen. ? 2. 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 There is diminutive size of the right vertebral artery just proximal to joining to form the basilar artery.? No definite occlusion seen.? This is likely congenital.? No significant atherosclerotic vascular disease at this segment.? ? 3. Atherosclerotic vascular disease of the extracranial/cervical arterial vasculature without high-grade stenosis. ? 4. Scattered ethmoid and bilateral maxillary sinus disease. ? 5. Bilateral upper lobe pulmonary emphysematous changes with suspected patchy atelectasis of the left upper lobe.? TTE:The left ventricle appears normal in size, wall thickness, and systolic function without any focal wall motion abnormalities. The ejection fraction is estimated to be 55-60%. The right ventricular systolic function is normal. The left atrium is moderately dilated. There is mild aortic regurgitation. Hospital Course: Patient was admitted to overnight observation for acute TIA. Symptoms did not recur. MRI without findings of stroke. He does have significant cerebral atherosclerosis. He has dyslipidemia with low HDL. Blood pressures have been mildly elevated generally below 150 systolic. He does not recall history of high blood pressure. Patient is discharged on high-intensity statin and aspirin. He reports history of significant nose bleeds with taking low-dose aspirin even for a couple of days. He agrees to try aspirin 81 mg every other day to see if tolerated. He will monitor blood pressures at home. He does need to get established with PCP. Status at Discharge Cognitive/behavioral status at discharge: oriented Functional status at discharge: independent ambulation Overall status at discharge: patient is back to baseline Exam Vital Signs (past 8 hours): - 05/13/21 08:00 05/13/21 11:21 Pulse Rate 67 Respiratory Rate 16 Blood Pressure 149/73 H Pulse Oximetry 98 98 Oxygen Delivery Method Room Air Oxygen Flow Rate 0 Narrative Exam Narrative: General: Alert very pleasant male in no acute distress Neurological: Normal affect and speech, no facial droop, no focal weakness Objective Labs Result Diagrams: 05/13/21 06:00 05/13/21 06:00 Labs: Laboratory Results - last 24 hr 05/12/21 05/12/21 05/12/21 17:39 17:39 17:39 WBC 4.0 L RBC 3.88 L Hgb 12.7 L Hct 36.4 L MCV 93.9 MCH 32.7 MCHC 34.8 RDW 13.4 Plt Count 188 Neut % (Auto) 58.2 Lymph % (Auto) 24.9 L [place] % (Auto) 15.0 H Eos % (Auto) 1.3 L Baso % (Auto) 0.6 Neut # (Auto) 2300 Lymph # (Auto) 1000 L [place] # (Auto) 600 Eos # (Auto) 0 Baso # (Auto) 0 PT 12.5 INR 1.1 APTT 30 Sodium 132 L Potassium 3.7 Chloride 101 Carbon Dioxide 25 BUN 16 Creatinine 0.89 Estimated GFR > 60.0 BUN/Creatinine Ratio 18.0 Glucose 123 H Hemoglobin A1c Calcium 8.1 L Magnesium Total Bilirubin 0.6 AST 25 ALT 20 Alkaline Phosphatase 66 Total Creatine Kinase 34 L CK-MB (CK-2) TNP CK-MB (CK-2) Rel Index TNP Troponin I < 0.012 Total Protein 6.5 Albumin 3.6 Globulin 2.9 Albumin/Globulin Ratio 1.2 Triglycerides Cholesterol LDL Cholesterol, Calc HDL Cholesterol SARS-CoV-2 (PCR) 05/12/21 05/13/21 05/13/21 17:44 06:00 06:00 WBC 3.6 L RBC 4.19 L Hgb 13.3 L Hct 39.2 L MCV 93.6 MCH 31.7 MCHC 33.9 RDW 13.4 Plt Count 189 Neut % (Auto) 59.9 Lymph % (Auto) 24.4 L [place] % (Auto) 14.1 H Eos % (Auto) 1.3 L Baso % (Auto) 0.3 Neut # (Auto) 2200 Lymph # (Auto) 900 L [place] # (Auto) 500 Eos # (Auto) 0 Baso # (Auto) 0 PT INR APTT Sodium 141 Potassium 3.7 Chloride 109 H Carbon Dioxide 27 BUN 12 Creatinine 0.76 Estimated GFR > 60.0 BUN/Creatinine Ratio 15.8 Glucose 105 Hemoglobin A1c Calcium 8.4 Magnesium Total Bilirubin AST ALT Alkaline Phosphatase Total Creatine Kinase CK-MB (CK-2) CK-MB (CK-2) Rel Index Troponin I Total Protein Albumin Globulin Albumin/Globulin Ratio Triglycerides 103 Cholesterol 143 LDL Cholesterol, Calc 99 HDL Cholesterol 23 L SARS-CoV-2 (PCR) Positive H 05/13/21 05/13/21 06:00 06:00 WBC RBC Hgb Hct MCV MCH MCHC RDW Plt Count Neut % (Auto) Lymph % (Auto) [place] % (Auto) Eos % (Auto) Baso % (Auto) Neut # (Auto) Lymph # (Auto) [place] # (Auto) Eos # (Auto) Baso # (Auto) PT INR APTT Sodium Potassium Chloride Carbon Dioxide BUN Creatinine Estimated GFR BUN/Creatinine Ratio Glucose Hemoglobin A1c 5.7 Calcium Magnesium 2.4 H Total Bilirubin AST ALT Alkaline Phosphatase Total Creatine Kinase CK-MB (CK-2) CK-MB (CK-2) Rel Index Troponin I Total Protein Albumin Globulin Albumin/Globulin Ratio Triglycerides Cholesterol LDL Cholesterol, Calc HDL Cholesterol SARS-CoV-2 (PCR) [facility] Social History household members: children Smoking Status: Never smoker alcohol intake: former Discharge Plan Discharge Plan Patient Disposition: Home Provider Discharge Comment: You were evaluated due to TIA. Brain MRI did not show a stroke. You have diffuse atherosclerosis (arterial plaque) seen on imaging. Your ECHO exam was normal. Take low dose aspirin very other day. Take atorvastatin for cholesterol control. Your blood pressures were mildly elevated in hospital. You should monitor blood pressures at home. You may need to start on blood pressure lowering medication. Consider getting a carotid ultrasound exam in 2 months to recheck areas of arterial narrowing. Discharge orders & Medications Prescriptions: New atorvastatin [Lipitor] 20 mg Tablet 40 mg PO BEDTIME Qty: 30 0RF aspirin 81 mg Tablet,Delayed Release (Dr/Ec) 81 mg PO Q OTHER DAY Qty: 1 0RF Follow up/Referrals: Miscellanabella,DoctorMD [Primary Care Provider] - Diet/Activity/Treatments Diet: Regular Visit Report/Discharge Packet Instructions: Transient Ischemic Attack, DI for Transient Ischemic Attack, DI for COVID-19 (Suspected or Confirmed ) Discharge Data Primary Care Provider: NegraDoctor Attending Provider: Usama Fajardo VTE Deep Vein Thrombosis/Pulmonary Embolism Present on Admission: No
--- NOTE | 2021-05-13 14:38 | PT.IIE ---
Physical Therapy Inpatient Evaluation/Re-Eval M1 PT/OT-IP Prior Functional Status Start: 05/13/21 14:10 Freq: NEEDED Status: Discharge Protocol: Document 05/13/21 13:00 [facility] (Rec: 05/13/21 14:24 [facility] [id number]) Medical Review Prior Functional Status Medical History Reviewed Yes Diet/Fluid Consistency Regular Communication Independent Mobility and Gait Independent with no device used. Activities of Daily Living and IADL's COmpletely independent with all ADl,IADL and drives. Prior Functional Level (Other details) Pt states lives with his daughter in law and grand daughter and that someone is always home if he were to needs assist. Pt sleeps out in the trailer next to the house. Social History Household Members children Living Arrangements RV Number of Stairs To Enter/Railing? 2 steps with left rail to get into the trailer. # steps with right rial to get into the house. Pt showers inside the house. Home Environment Tub/Shower Home Equipment Straight Cane Additional Social History Comment Pt's has a SPC that his used. M1 PT/OT-IP Prior Functional Status Start: 05/13/21 15:50 Freq: NEEDED Status: Active Protocol: Document 05/13/21 14:38 AB (Rec: 05/13/21 16:02 AB [id number]) Medical Review Prior Functional Status Medical History Reviewed Yes Diet/Fluid Consistency Regular Communication able to make needs known Mobility and Gait pt stated that he is independent with all mobilities and ambulation without AD Social History Household Members family Living Arrangements House Number of Stairs To Enter/Railing? 3 steps R rail to enter the house Home Environment Standard Height Toilet,Walk in Shower Home Equipment Hand Held Shower,Grab Bars In Shower M2 PT-IP Current Condition Start: 05/13/21 15:50 Freq: NEEDED Status: Active Protocol: Document 05/13/21 14:38 AB (Rec: 05/13/21 16:02 AB [email or web address]) Physical Therapy Current Condition Current Condition Evaluation Date 05/13/21 Treatment Diagnosis TIA; Covid; difficulty in walking Onset Date 05/12/21 M3 PT-IP Subjective Start: 05/13/21 15:50 Freq: NEEDED Status: Active Protocol: Document 05/13/21 14:38 AB (Rec: 05/13/21 16:02 AB [email or web address]) Subjective Physical Therapy Visit Type Type Initial Evaluation Visit Start Time 14:38 Visit Stop Time 15:00 Total Visit Minutes 22 Number of FUR CUTTER Visits 0 Physical Therapy Visit Comments Patient Comments agreeable to do PT Therapy Pain Assessment Pain Present Pain Present Denied Pain M4 PT-IP Mobility and Gait Start: 05/13/21 15:50 Freq: NEEDED Status: Active Protocol: Document 05/13/21 14:38 AB (Rec: 05/13/21 16:02 AB [email or web address]) PT-Bed Mobility Assessment Supine to Sit Supine to Sit Independent Sit to Supine Sit to Supine Independent Scooting Scooting to Edge of Bed Independent PT-Transfer Assessment Sit to and From Stand Sit to and from Stand Independent Equipment Transfer Assistive Device None,Gait Belt Orthotic/Prosthetic Devices or Brace: No Comments Mobility Comments checked on pt and pt standing by the window without AD. ambulated to sit on EOB mod I. completed bed mobility independent. ambulated in room without AD mod I ~ 40 ft. Assessed standing balance: single leg stance: RLE: able to hold fo ~ 9 sec LLE: able to hold for 10 sec. completed up/down step stool with R rail SBA. pt sat back on the EOB. call light within reach. Gait Assessment Gait Gait Assistance Required: Independent Distance (Feet) 40 Able to Maintain Weight Bearing Status Yes During Gait Assistive Devices Assistive Device None,Gait Belt Orthotic/Prosthetic Devices or Brace: No Gait Deviations General Gait Pattern Antalgic,Decreased Stride Length,Decreased Feet Clearance Stair Climbing Assessment Evaluation Level of Assist On Stairs Standby Assistance Devices Stair Climbing Assistive Devices Right Railing Technique/Endurance Stair Climbing Direction Ascend and Descend Number of Steps Climbed 1 Query Text: Stair Climbing Set # Repetitions (reps) 3 PT-Balance Assessment Sitting Balance and Reactions Static Sitting Balance Ability Normal Dynamic Sitting Balance Ability Normal Standing Balance and Reactions Static Standing Balance Ability Good Dynamic Standing Balance Ability Fair Device Used without AD M5 PT-IP Objective Assessments Start: 05/13/21 15:50 Freq: NEEDED Status: Active Protocol: Document 05/13/21 14:38 AB (Rec: 05/13/21 16:02 AB [email or web address]) Orientation Orientation/Cognition Level of Alertness Alert Orientation Name,Place,Situation Safety Awareness Decreased Safety Awareness Gross Range of Motion Lower Extremity ROM Assessment Within Functional Limits Strength Lower Extremity Strength Hip 4-/5 Knee 4-/5 Muscle Tone Muscle Tone WNL Yes M6 PT-IP Treatment Start: 05/13/21 15:50 Freq: NEEDED Status: Active Protocol: Document 05/13/21 14:38 AB (Rec: 05/13/21 16:02 AB [email or web address]) Physical Therapy Treatment Education Education Provided Safety M7 PT-IP Assessment and Plan Start: 05/13/21 15:50 Freq: NEEDED Status: Active Protocol: Document 05/13/21 14:38 AB (Rec: 05/13/21 16:02 AB [email or web address]) PT Summary Assessment and Plan Potential Rehabilitation Potential Fair Status of Condition at Evaluation Stable Summary Impairments Balance Progress Towards Goals Safe For Discharge Assessment Summary pt is independent with bed mobility, transfers and ambulation without AD and SBA for stair climbing for safety. pt plans to go home today and family will be able to assist him. pt may go home when medically stable. Frequency of Treatment Frequency Of Treatment Discharge Recommendations To Nursing Amount of Assist Needed Independent Discharge Recommendations PT Discharge Recommendations Home with Assistance Transportation Needs at Discharge Private Vehicle
== END 2021-05-13 15:20 | disposition home or self-care (01) ==
LOC: ED 17:59 → AC 18:46
PROVIDERS: Internal Medicine; Admitting Provider Student in an Organized Health Care Education/Training Program; Emergency Provider Emergency Medicine; Referring Provider Emergency Medicine; Visit Provider Student in an Organized Health Care Education/Training Program
DX: G45.9 Transient cerebral ischemic attack, unspecified (principal); U07.1 COVID-19; R29.700 NIHSS score 0; I67.2 Cerebral atherosclerosis; D61.818 Other pancytopenia; R03.0 Elevated blood-pressure reading, without diagnosis of hypertension; E78.5 Hyperlipidemia, unspecified
CPT/HCPCS: 70450; 70496; 70498; 70551; 80048; 80053; 80061; 82550; 82962; 83036; 83735; 84484; 85025; 85610; 85730; 87635; 93005; 93306; 94760; 96372; 97161; 97165; 99284; C9803; G0378; J1650; Q9967

== ENCOUNTER → 2021-07-12 11:51 | Outpatient (CLI) | payer MEDICARE, OTHER, SELFPAY ==
[2021-05-12 19:24] VITALS: BMI 23.6
--- NOTE | 2021-07-12 11:53 | DI.US.S_ITS ---
PROCEDURE: US CAROTID DOPPLER BI INDICATIONS: Cerebral atherosclerosis TECHNIQUE: Color and pulse Doppler interrogation was performed of both carotid systems, with image documentation and velocity measurements. COMPARISON: [facility], CT, CT ANGIO HEAD AND NECK, 05/12/2021, 17:35. FINDINGS: Stenosis calculations are based on SRU (Society of Radiologists in Ultrasound) criteria. The flow velocities and the arterial waveforms are normal within both carotid arterial systems. Mild atherosclerotic plaque is seen on both sides. The estimated degree of internal carotid artery stenosis is less than 50%. Antegrade flow is confirmed within both vertebral arteries. IMPRESSION: No hemodynamically significant stenosis is seen. Dictated by: Cory Villaseñor M.D. on 07/12/2021 at 12:03 Approved by: Cory Villaseñor M.D. on 07/12/2021 at 12:03
== END ==
PROVIDERS: PCP Physician Assistant; Referring Provider Physician Assistant; Visit Provider Physician Assistant
DX: I67.2 Cerebral atherosclerosis (principal); G45.9 Transient cerebral ischemic attack, unspecified
CPT/HCPCS: 93880

== ENCOUNTER 2023-01-18 09:08 | Emergency (ER) | payer MEDICARE, OTHER, SELFPAY ==
[2021-05-12 19:24] VITALS: BMI 23.6
[2023-01-18 09:10] VITALS: BP 177/79; PULSE 66; RESP 15; TEMP 36.6; O2SAT 98; BMI 23.5
--- NOTE | 2023-01-18 09:22 | DI.RAD.S_ITS ---
PROCEDURE: XR CLAVICLE LT INDICATIONS: fall,shoulder/clavicle pain TECHNIQUE: 2 views of the clavicle were acquired. COMPARISON: None. FINDINGS: Bones: Left midclavicular fracture with overriding fracture fragments. Coracoclavicular and acromioclavicular intervals are maintained. Degenerative changes of the acromioclavicular joint are present. Other visualized osseous structures appear intact. Soft tissues: No suspicious soft tissue calcifications. IMPRESSION: Left midclavicular fracture. Dictated by: Augustine Mccauley M.D. on 01/18/2023 at 9:53 Approved by: Augustine Mccauley M.D. on 01/18/2023 at 9:54
--- NOTE | 2023-01-18 09:22 | DI.RAD.S_ITS ---
PROCEDURE: XR SHOULDER LT MIN 2V INDICATIONS: fall,shoulder/clavicle pain TECHNIQUE: 4 views of the shoulder were acquired. COMPARISON: [facility], CR, XR CLAVICLE LT, 01/18/2023, 9:25. FINDINGS: Bones: There is a displaced left midclavicular fracture with mild overriding of the fracture fragments. Normal alignment of the acromioclavicular and glenohumeral joints. Degenerative changes of the acromioclavicular and glenohumeral joints. Coracoclavicular and acromioclavicular intervals are maintained. Soft tissues: No suspicious soft tissue calcifications. IMPRESSION: Left midclavicular fracture. 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 Dictated by: Augustine Mccauley M.D. on 01/18/2023 at 9:51 Approved by: Augustine Mccauley M.D. on 01/18/2023 at 9:53
--- NOTE | 2023-01-18 09:45 | ED_ITS ---
HPI - Fall General Chief Complaint: Fall Stated Complaint: fell- dislocated left shoulder Time Seen by Provider: 01/18/23 09:12 Source: patient Mode of arrival: Ambulatory Limitations: no limitations History of Present Illness HPI Narrative: 77-year-old male on aspirin 81 mg daily atorvastatin and losartan with history of prior TIAs. Patient presents today after falling about a foot and half off the deck he states he stepped down 1 step slipped and fell about 2 additional steps landing on his left shoulder. States he does not think he hit his head. He denies any headache no neck pain, no chest pain or shortness of breath. No back pain. He is pain in the shoulder with movement. He denies any numbness, tingling or weakness otherwise in his upper extremities. No issues with his lower extremities. No loss of bowel or bladder control. He denies any nausea or vomiting or other GI or urinary symptoms. Patient states he is on aspirin daily but no other anticoagulants. No tobacco, occasional alcohol none today, no illicit. He defers anything for pain here in the department. He does have a sling in place. No loss of consciousness. He is accompanied by his . Related Data Previous Rx's Medication Instructions Recorded aspirin 81 mg tablet,delayed 81 mg PO Q OTHER DAY #1 tab 05/13/21 release atorvastatin 20 mg tablet (Lipitor) 40 mg (2 x 20 mg) PO BEDTIME #30 05/13/21 tabs Allergies Allergy/AdvReac Type Severity Reaction Status Date / Time No Known Drug Allergies Allergy Verified 01/18/23 09:22 Review of Systems Review of Systems ROS Unobtainable: All systems reviewed & are unremarkable except as noted in HPI and below Patient History Social History household members: family Smoking Status: Never smoker alcohol intake: former Smoking Status: Never smoker alcohol intake frequency: holidays/special occasions only Substance Use Type: does not use Exam Narrative Exam Narrative: GEN: Patient appears in mild distress. HEAD: No evidence of trauma, no raccoon/Mart sign. NECK: Nontender, painless range of motion, trachea midline Negative Nexus criteria, there is no midline line tenderness, distracting injury, altered mental status, neuro deficit, recent EtOH. EYES: PERRLA, EOMI ENT: External inspection normal, trachea is midline, TM's are normal no hemotypanum, Nares are clear, no septal hematoma, no dental or oral injury, airway is normal and with normal occlusion, No bony tenderness RESP: Chest is nontender and has symmetric movement, no ecchymosis, breath sounds are normal no crackles, wheezes or rales CVS: Heart sounds are normal, no murmur noted, No JVD. ABG/GI: Nontender, soft, normal bowel sounds, no distention, no organomegaly, pelvic rock is negative NEURO: Oriented AOx3, neuro is grossly intact, sensation and motor is normal all 4 extremities moving, cranial nerves II through XII are intact, GCS is 15 PSYCH: Normal mood and affect SKIN: Intact, warm and dry, no crepitus and without decubitus BACK: No CVA tenderness, no vertebral tenderness, no step-off's, no crepitus EXT: Left shoulder has some deformity over the left mid clavicle no obvious deformity at the shoulder itself. Patient has some mild bony tenderness. Not take shoulder through range of motion but has normal movement of the left fingers, hand and wrist. No bony tenderness through the rest of the arm over the humerus no tenderness over the AC joint. Patient's doping supervisor are equal bilaterally. Sensation intact bilaterally. 2+ radial pulses bilaterally. Hips are nontender. SKIN: No rash, erythema or other skin changes. Initial Vital Signs Initial Vital Signs: Vital Signs Temperature 97.9 F 01/18/23 09:10 Pulse Rate 66 01/18/23 09:10 Respiratory Rate 15 01/18/23 09:10 Blood Pressure 177/79 H 01/18/23 09:10 Pulse Oximetry 98 01/18/23 09:10 Oxygen Delivery Method Room Air 01/18/23 09:10 Course Orders Ordered: ED Orders 01/18/23 09:22 XR clavicle LT Stat XR shoulder LT min 2V Stat Vital Signs Vital signs: Vital Signs - 8 hr 01/18/23 09:10 Temperature 97.9 F Pulse Rate 66 Respiratory Rate 15 Blood Pressure 177/79 H Pulse Oximetry 98 Oxygen Delivery Method Room Air MDM - Fall Imaging Data Extremity x-ray #1: Radiologist's Impression: [address] [address] XRay Report Signed Patient: Russ Humphrey MR#: [id number] : 1945 Acct:[id number] Age/Sex: 77 / M Date of Service: 01/18/23 Loc: ED Accession Number: [id number] Procedure: XR shoulder LT min 2V Ordering Provider: Debby Carrington D.O. PROCEDURE: XR SHOULDER LT MIN 2V INDICATIONS: fall,shoulder/clavicle pain TECHNIQUE: 4 views of the shoulder were acquired. COMPARISON: [facility], CR, XR CLAVICLE LT, 01/18/2023, 9:25. FINDINGS: Bones: There is a displaced left midclavicular fracture with mild overriding of the fracture fragments. Normal alignment of the acromioclavicular and glenohumeral joints. Degenerative changes of the acromioclavicular and glenohumeral joints. Coracoclavicular and acromioclavicular intervals are maintained. Soft tissues: No suspicious soft tissue calcifications. IMPRESSION: Left midclavicular fracture. 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 Dictated by: Augustine Mccauley M.D. on 01/18/2023 at 9:51 Approved by: Augustine Mccauley M.D. on 01/18/2023 at 9:53 Extremity x-ray #2: Radiologist's Impression: [place] [address] XRay Report Signed Patient: Russ Humphrey MR#: [id number] : 1945 Acct:[id number] Age/Sex: 77 / M Date of Service: 01/18/23 Loc: ED Accession Number: [id number] Procedure: XR clavicle LT Ordering Provider: Debby Carrington D.O. PROCEDURE: XR CLAVICLE LT INDICATIONS: fall,shoulder/clavicle pain TECHNIQUE: 2 views of the clavicle were acquired. COMPARISON: None. FINDINGS: Bones: Left midclavicular fracture with overriding fracture fragments. Coracoclavicular and acromioclavicular intervals are maintained. Degenerative changes of the acromioclavicular joint are present. Other visualized osseous structures appear intact. Soft tissues: No suspicious soft tissue calcifications. IMPRESSION: Left midclavicular fracture. Dictated by: Augustine Mccauley M.D. on 01/18/2023 at 9:53 Approved by: Augustine Mccauley M.D. on 01/18/2023 at 9:54 [facility] Narrative Medical decision making narrative: 77-year-old male with witnessed fall he is on aspirin but no injury to his head or neck. Patient fell landing on his left shoulder approximately 18-24 inches off the ground. Patient has left midclavicular fracture consistent with his ex am findings. No obvious shoulder dislocation. He is neurovascularly intact plan for sling PRN. Pain management as needed patient states he has Tylenol and ibuprofen at home. Follow up with primary care for recheck and to make sure clavicles healing appropriately. Return precautions discussed. Discharge Plan Departure Patient Disposition: Home Clinical Impression: Clavicle fracture, shaft Qualifiers: Encounter type: initial encounter Fracture type: closed Laterality: left Instructions: DI for Clavicle Fracture-Adult Activity Restrictions/Additional Instructions: Follow up with your primary care provider in the next week for recheck. You did break your clavicle. Bones typically take 8-12 weeks to fully heal but you should start to have improvement in pain over the next 2 or 3 weeks. You may wear sling as needed. You were not required to wear this but it often helps with discomfort. Continue to rotate your shoulder to help prevent frozen shoulder. You can take Tylenol up to a 1000 mg every 6 hours as needed for pain. You may find it more comfortable to be seated somewhat upright. OK to use ice pack on the affected body part. Use for 15-20 minutes each time, for 5-6x per day. If you develop worsening pain, numbness, tingling, discoloration of the affected body part, you may adjust the sling, and either see your doctor for an urgent re-assessment, or return to the Emergency Department. Return to the Emergency Department for any new or worsening symptoms. Prescriptions: No Action atorvastatin [Lipitor] 20 mg Tablet 40 mg PO BEDTIME Qty: 30 0RF aspirin 81 mg Tablet,Delayed Release (Dr/Ec) 81 mg PO Q OTHER DAY Qty: 1 0RF Referrals: Yudi Manzano PA-C [Primary Care Provider] - Stand Alone Forms: Patient Portal/API
== END 2023-01-18 10:20 | disposition home or self-care (01) ==
PROVIDERS: Emergency Provider Emergency Medicine; PCP Physician Assistant
DX: S42.022A Displaced fracture of shaft of left clavicle, initial encounter for closed fracture (principal); M19.012 Primary osteoarthritis, left shoulder; W17.89XA Other fall from one level to another, initial encounter; W10.8XXA Fall (on) (from) other stairs and steps, initial encounter; Z79.82 Long term (current) use of aspirin; Z79.899 Other long term (current) drug therapy; Z86.73 Personal history of transient ischemic attack (TIA), and cerebral infarction without residual deficits
CPT/HCPCS: 73000; 73030; 99282; 99283